=== PATIENT | male | born 1935 | race Asian ===

== ENCOUNTER 2016-11-09 07:17 | Day surgery (SDC) | payer MEDICARE ==
[~2016-11-09 07:17] MED LIST: BENADRYL25 M3 PO; LASIX20 M1 PO; LIPITOR20 M1 PO; LOPRESSOR50 M1 PO; LOW DOSE ASPIRI81 M3 PO; NORVASC5 M2 PO; SYNTHROID88 MC1 PO
[2016-11-09 08:40] LABS: ANION GAP 11 mmol/L (0-20); BLOOD UREA NITROGEN 24 mg/dl (6-24); CALCIUM 8.7 mg/dl (8.5-10.5); CARBON DIOXIDE-VENOUS 25 mmol/L (22-32); CHLORIDE 106 mmol/l (96-110); CREATININE 2.07 mg/dl (0.60-1.30); GLUCOSE 107 mg/dL (70-110); POTASSIUM 4.4 mmol/L (3.7-5.1); SODIUM 138 mmol/L (135-145); eGFR VALUE FOR BLACK 33 mL/Min
[2016-11-10 05:28] LABS: HCT-HEMATOCRIT 40.9 % (36.0-53.5); HGB-HEMOGLOBIN 14.4 gm/dl (13.5-17.0); MCV (MEAN CELL VOLUME) 90.1 fl (82.0-96.0); RED CELL DISTRIBUTION WIDTH 11.6 % (12.4-16.4)
[2016-11-10] MEDS ORDERED: COLACE100 M1 PO (13:44)
[2016-11-10] MEDS ORDERED: MACROBID 100 M100 M1 PO (13:44)
[2016-11-10] MEDS ORDERED: TYLENOL325 M2 PO (14:01)
[2016-11-10] MEDS ORDERED: MILK OF MAGNESIA PO (14:04)
[2016-11-11] MEDS ORDERED: TRIPLE ANTIBIO1 EACH TP (07:50)
== END 2016-11-11 11:10 ==
LOC: SRG 07:17 → SHSA 07:21 → ORW 09:25 → PACU 11:19 → SHSA 12:05 → 5WE 17:35
PROVIDERS: Anesthesiology; Urology
PROC: 0TBB8ZZ Excision of Bladder, Via Natural or Artificial Opening Endoscopic (ICD-10-PCS; principal; 2016-11-09)
DX: C67.3 Malignant neoplasm of anterior wall of bladder (principal); C67.5 Malignant neoplasm of bladder neck; I25.10 Atherosclerotic heart disease of native coronary artery without angina pectoris; E78.5 Hyperlipidemia, unspecified; F03.90 Unspecified dementia, unspecified severity, without behavioral disturbance, psychotic disturbance, mood disturbance, and anxiety; K21.9 Gastro-esophageal reflux disease without esophagitis; I12.0 Hypertensive chronic kidney disease with stage 5 chronic kidney disease or end stage renal disease; N18.9 Chronic kidney disease, unspecified; H26.9 Unspecified cataract; E89.0 Postprocedural hypothyroidism; Z79.82 Long term (current) use of aspirin; Z79.899 Other long term (current) drug therapy; Z87.891 Personal history of nicotine dependence; Z87.440 Personal history of urinary (tract) infections; Z95.0 Presence of cardiac pacemaker; Z95.1 Presence of aortocoronary bypass graft; Z95.5 Presence of coronary angioplasty implant and graft; Z98.890 Other specified postprocedural states
CPT/HCPCS: J1580; J3010; J9280